=== PATIENT | female | born 1995 | race Caucasian/White ===

== ENCOUNTER 2019-08-22 19:43 | Emergency (ER) | payer OTHER ==
--- NOTE | 2019-08-22 20:10 | EDM.PDOC ---
ED HPI GENERAL MEDICAL PROBLEM - General Chief Complaint: Respiratory Problem Stated Complaint: CHEST CONGESTION/VOMITING Time Seen by Provider: 08/22/19 19:55 Source of Information: Reports: Patient History Limitations: Reports: No Limitations - History of Present Illness INITIAL COMMENTS - FREE TEXT/NARRATIVE: The patient presents with a cough, congestion, runny nose and shortness of breath for about a week. She started out with a fever but that is better. She will be up at night with coughing fits. She has no history of asthma and she does not smoke. She has no ear pain or sore throat. She will cough so hard sometimes that she will vomit after coughing. Onset: Gradual Duration: Week(s): (1) Severity: Moderate Improves with: Reports: None Worsens with: Reports: None Associated Symptoms: Reports: Cough, cough w sputum, Shortness of Breath. Denies: Chest Pain, Fever/Chills, Headaches, Nausea/Vomiting Generalized Pain Score (Numeric/FACES): 4 - Related Data Allergies Allergy/AdvReac Type Severity Reaction Status Date / Time No Known Allergies Allergy Verified 08/22/19 19:56 Home Meds: Home Meds Albuterol [Proventil HFA] 2 puff INH Q4H PRN #1 inhaler 08/22/19 [Rx] Azithromycin [Zithromax] 250 mg PO DAILY #6 tab 08/22/19 [Rx] Codeine/Promethazine [Phenergan with Codeine] 5 - 10 ml PO Q6HR PRN #300 ml 01/05 [Rx] Insulin Regular, Human [Novolin R] 1 dose SUBCUT ASDIRECTED 08/22/19 [History] Past Medical History Endocrine/Metabolic History: Reports: Diabetes, Type I Social & Family History - Tobacco Use Smoking Status *Q: Never Smoker - Caffeine Use Caffeine Use: Reports: Coffee - Recreational Drug Use Recreational Drug Use: No ED ROS GENERAL - Review of Systems Review Of Systems: See Below Constitutional: Reports: No Symptoms HEENT: Reports: No Symptoms Respiratory: Reports: Shortness of Breath, Cough Cardiovascular: Reports: No Symptoms Endocrine: Reports: No Symptoms GI/Abdominal: Reports: Vomiting (after coughing at times). Denies: Abdominal Pain, Nausea ED EXAM, GENERAL - Physical Exam Exam: See Below Exam Limited By: No Limitations General Appearance: Alert, No Apparent Distress Ears: Normal External Exam Nose: Normal Inspection Throat/Mouth: Normal Inspection Head: Atraumatic, Normocephalic Neck: Normal Inspection, Supple, Non-Tender Respiratory/Chest: No Respiratory Distress, Lungs Clear, Normal Breath Sounds Cardiovascular: Regular Rate, Rhythm, No Edema, No Murmur GI/Abdominal: Soft, Non-Tender, No Organomegaly, No Mass Back Exam: Normal Inspection Extremities: Normal Inspection Course - Vital Signs Last Recorded V/S: Last Vital Signs Temp 99.3 F 08/22/19 19:54 Pulse 112 H 08/22/19 19:54 Resp 18 08/22/19 19:54 BP 149/80 H 08/22/19 19:54 Pulse Ox 98 08/22/19 19:54 - Orders/Labs/Meds Orders: Active Orders 24 hr Category Date Time Status Influenza Vaccine Charge [RC] .DISCHARGE Care 08/22/19 20:00 Active Pharmacy to Dose - InFluenza V [Pharmacy to Dose - Med 08/22/19 20:00 Once InFluenza Vaccine] 1 each IM ONETIME ONE Medication Orders Influenza Virus Vaccine (Pharmacy To Dose - Influenza Vaccine) 1 each IM ONETIME ONE Stop: 08/22/19 20:01 Meds: Medications Generic Name Dose Route Start Last Admin Trade Name Freq PRN Reason Stop Dose Admin Influenza Virus Vaccine 1 each 08/22/19 20:00 Pharmacy To Dose - Influenza Vaccine IM 08/22/19 20:01 ONETIME ONE Departure - Departure Time of Disposition: 20:15 Disposition: Home, Self-Care 01 Condition: Good Clinical Impression: Bronchitis - Discharge Information *PRESCRIPTION DRUG MONITORING PROGRAM REVIEWED*: No *COPY OF PRESCRIPTION DRUG MONITORING REPORT IN PATIENT YAW: No Prescriptions: Codeine/Promethazine [Phenergan with Codeine] 5 - 10 ml PO Q6HR PRN #300 ml PRN Reason: Cough Albuterol [Proventil HFA] 2 puff INH Q4H PRN #1 inhaler PRN Reason: Shortness Of Breath Azithromycin [Zithromax] 250 mg PO DAILY #6 tab Referrals: PCP,None [Primary Care Provider] - Natali Chen PA-C [Physician Cnc Manager] - 1 Week Additional Instructions: Use the inhaler 2 puffs every 6 hours as needed for shortness of breath. Take the zithromax 2 pills on day 1 and then 1 pill on day 2 through 5. Take the phenergan with codeine 5 to 10mls every 6 hours as needed for cough. Please return if you are worse. - My Orders Last 24 Hours: My Active Orders 08/22/19 20:00 Influenza Vaccine Charge [RC] .DISCHARGE Pharmacy to Dose - InFluenza V [Pharmacy to Dose - InFluenza Vaccine] 1 each IM ONETIME ONE - Assessment/Plan Last 24 Hours: My Active Orders 08/22/19 20:00 Influenza Vaccine Charge [RC] .DISCHARGE Pharmacy to Dose - InFluenza V [Pharmacy to Dose - InFluenza Vaccine] 1 each IM ONETIME ONE
[2019-08-22] MEDS ORDERED: FLU Vacc QS2019-20(6MOS+)/PF 60 MCG/0.5 ML SYRINGE IM ONE (20:15)
== END 2019-08-22 20:30 | disposition home or self-care (01) ==
LOC: JD.ED 19:43
DX: J40 Bronchitis, not specified as acute or chronic (principal); E10.9 Type 1 diabetes mellitus without complications; Z23 Encounter for immunization; Z79.4 Long term (current) use of insulin
CPT/HCPCS: 90686; 99282; 99284-25; G0008